=== PATIENT | male | born 1980 | race Caucasian/White ===

== ENCOUNTER 2020-10-31 17:10 | Inpatient (IN) ==
[2020-10-31] MEDS ORDERED: AZITHROMYCIN INJ 500 MG in SODIUM CHLORIDE 0.9% 250 ML IV STA (18:49)
[2020-10-31] MEDS ORDERED: SODIUM CHLORIDE 0.9% 500 ML IV STA (18:49)
[2020-10-31] MEDS ORDERED: DEXAMETHASONE 4 MG/1 ML VIAL IV STA (18:49)
[2020-10-31] MEDS ORDERED: ONDANSETRON 4 MG/2 ML VIAL IV STA (18:49)
[2020-10-31 20:20] LABS: Basophils % 0.4 % (0.0-0.8); Hemoglobin 14.5 GM/DL (14.0-18.0); Immature Granulocytes % 2.3 %; Immature Granulocytes Absolute 0.16 #; Lymphocytes # 0.8 10*3/uL (1.4-4.0); Lymphocytes % 11.8 % (21.2-54.2); Mean Corpuscular HGB Conc 33.7 GM/DL (32-36); Mean Corpuscular Volume 90.7 FL (87-102); Mean Platelet Volume 10.1 FL (9.6-12.0); Monocytes % 6.5 % (1.7-12.7); Platelet Count 238 T/CUMM (130-400); Red Blood Count 4.74 MC/CUMM (3.8-5.5); Red Cell Distribution Width 12.5 % (9.3-17.3); White Blood Count 7.1 T/CUMM (4-12)
[2020-10-31 20:40] LABS: Albumin 2.7 G/DL (3.4-5.0); Bilirubin,Total 0.6 MG/DL (0.20-1.00); Calcium 7.6 MG/DL (8.5-10.1); Osmolality,Calculated 271.8 MOS/KG (273-304); Potassium 4.5 MMOL/L (3.5-5.1); Total Protein 5.8 G/DL (6.4-8.2)
[2020-10-31 20:41] LABS: Ferritin 1688.7 ng/ml (26-388)
[2020-10-31 20:46] LABS: PT Patient Result 11.5 SECS (10.5-12.0)
[2020-10-31 21:08] LABS: Hypochromasia Slight; Microcytosis 1+; Platelet Estimate Normal
[2020-10-31] MEDS ORDERED: ENOXAPARIN 100 MG/ML SYRINGE SUBCUT STA (21:13)
[2020-10-31] MEDS ORDERED: MELATONIN 3 MG TABLET PO PRN (22:39)
[2020-10-31] MEDS ORDERED: ONDANSETRON 4 MG/2 ML VIAL IV PRN (22:48)
[2020-10-31] MEDS ORDERED: GLUCAGON 1 MG VIAL IM PRN (22:48)
[2020-10-31] MEDS ORDERED: DOCUSATE SODIUM 100 MG CAPSULE PO PRN (22:48)
[2020-10-31] MEDS ORDERED: ACETAMINOPHEN 325 MG TABLET PO PRN (22:48)
[2020-10-31] MEDS ORDERED: DEXTROSE 50% 25 GM/50 ML VIAL IV PRN (22:48)
[2020-10-31] MEDS: ASCORBIC ACID 500 MG TABLET PO SCH (22:55)
[2020-10-31] MEDS: FAMOTIDINE 20 MG TABLET PO SCH (22:55)
[2020-11-01] MEDS: cefTRIAXone 1,000 MG in SODIUM CHLORIDE 0.9% 100 ML IV SCH (03:00)
[2020-11-01 04:32] LABS: Basophils % 0.6 % (0.0-0.8); Hemoglobin 13.5 GM/DL (14.0-18.0); Immature Granulocytes Absolute 0.23 #; Lymphocytes # 0.9 10*3/uL (1.4-4.0); Mean Corpuscular HGB Conc 32.9 GM/DL (32-36); Mean Corpuscular Volume 92.3 FL (87-102); Mean Platelet Volume 10.8 FL (9.6-12.0); Monocytes % 6.7 % (1.7-12.7); Neutrophils % 67.7 % (38.7-73.9); Platelet Count 254 T/CUMM (130-400); Red Blood Count 4.44 MC/CUMM (3.8-5.5); Red Cell Distribution Width 12.5 % (9.3-17.3); White Blood Count 4.6 T/CUMM (4-12)
[2020-11-01 04:44] LABS: Albumin 1.9 G/DL (3.4-5.0); Bilirubin,Total 0.4 MG/DL (0.20-1.00); Calcium 6.7 MG/DL (8.5-10.1); Osmolality,Calculated 288.6 MOS/KG (273-304); Potassium 4.1 MMOL/L (3.5-5.1); Total Protein 5.1 G/DL (6.4-8.2)
[2020-11-01 05:06] LABS: Eosinophils 1 % (0-10); Lymphocytes 19 % (20-55); Segmented Neutrophils 74 % (50-85); Total Cells Counted 100
[2020-11-01 05:07] LABS: Platelet Estimate Normal
[2020-11-01 05:26] LABS: Ferritin 1391.7 ng/ml (26-388)
[2020-11-01] MEDS ORDERED: REMDESIVIR 200 MG in SODIUM CHLORIDE 0.9% 210 ML IV ONE (09:00)
[2020-11-01] MEDS ORDERED: ENOXAPARIN 40 MG/0.4 ML SYRINGE ONE ×2 (09:31→19:59)
[2020-11-01] MEDS: ASCORBIC ACID 500 MG TABLET PO SCH ×2 (09:52→20:25)
[2020-11-01] MEDS: FAMOTIDINE 20 MG TABLET PO SCH ×2 (09:52→20:25)
[2020-11-01] MEDS: CHOLECALCIFEROL 1,000 UNIT TABLET PO SCH (09:53)
[2020-11-01] MEDS: ZINC GLUCONATE 50 MG TABLET PO SCH (09:54)
[2020-11-01] MEDS: AZITHROMYCIN 250 MG TABLET PO SCH (09:55)
[2020-11-01] MEDS: CETIRIZINE 10 MG TABLET PO SCH (09:56)
[2020-11-01] MEDS: DEXAMETHASONE 4 MG/1 ML VIAL IV SCH (09:57)
[2020-11-01] MEDS: ENOXAPARIN 40 MG/0.4 ML SYRINGE SUBCUT SCH (20:25)
[2020-11-02] MEDS: cefTRIAXone 1,000 MG in SODIUM CHLORIDE 0.9% 100 ML IV SCH (03:25)
[2020-11-02 05:19] LABS: Basophils # 0.1 10*3/uL (0.0-0.2); Basophils % 0.4 % (0.0-0.8); Hematocrit 47.1 VOL% (42.0-52.0); Hemoglobin 15.1 GM/DL (14.0-18.0); Immature Granulocytes % 4.9 %; Lymphocytes # 2.3 10*3/uL (1.4-4.0); Lymphocytes % 15.9 % (21.2-54.2); Mean Corpuscular HGB Conc 32.1 GM/DL (32-36); Mean Corpuscular Volume 93.1 FL (87-102); Mean Platelet Volume 10.3 FL (9.6-12.0); Monocytes % 10.8 % (1.7-12.7); Platelet Count 371 T/CUMM (130-400); Red Blood Count 5.06 MC/CUMM (3.8-5.5); Red Cell Distribution Width 12.4 % (9.3-17.3); White Blood Count 14.4 T/CUMM (4-12)
[2020-11-02 05:37] LABS: Albumin 2.3 G/DL (3.4-5.0); Bilirubin,Total 0.7 MG/DL (0.20-1.00); Calcium 8.6 MG/DL (8.5-10.1); Osmolality,Calculated 281.5 MOS/KG (273-304); Potassium 4.6 MMOL/L (3.5-5.1); Total Protein 5.9 G/DL (6.4-8.2)
[2020-11-02 05:38] LABS: Ferritin 1144.9 ng/ml (26-388)
[2020-11-02 05:52] LABS: Band Neutrophils 3 % (0-10); Lymphocytes 18 % (20-55); Segmented Neutrophils 64 % (50-85); Total Cells Counted 100
[2020-11-02 05:53] LABS: Microcytosis 1+; Platelet Estimate Normal
[2020-11-02] MEDS: CETIRIZINE 10 MG TABLET PO SCH (09:31)
[2020-11-02] MEDS: FAMOTIDINE 20 MG TABLET PO SCH ×2 (09:32→20:55)
[2020-11-02] MEDS: CHOLECALCIFEROL 1,000 UNIT TABLET PO SCH (09:32)
[2020-11-02] MEDS: AZITHROMYCIN 250 MG TABLET PO SCH (09:32)
[2020-11-02] MEDS: ASCORBIC ACID 500 MG TABLET PO SCH ×2 (09:32→20:55)
[2020-11-02] MEDS: ZINC GLUCONATE 50 MG TABLET PO SCH (09:32)
[2020-11-02] MEDS: REMDESIVIR 100 MG in SODIUM CHLORIDE 0.9% 100 ML IV SCH (09:33)
[2020-11-02] MEDS: DEXAMETHASONE 4 MG/1 ML VIAL IV SCH (09:33)
[2020-11-02] MEDS ORDERED: guaiFENesin/CODEINE 5 ML LIQUID PO PRN (12:54)
[2020-11-02] MEDS: ENOXAPARIN 40 MG/0.4 ML SYRINGE SUBCUT SCH (20:55)
[2020-11-03] MEDS: cefTRIAXone 1,000 MG in SODIUM CHLORIDE 0.9% 100 ML IV SCH (02:12)
[2020-11-03 04:39] LABS: ABG Base Excess 5.2 MMOL/L (-2.5-2.5); ABG Oxygen Saturation 91.9 % (95-100); ABG PCO2 40.7 MM HG (35-48); ABG PH 7.466 (7.35-7.45); ABG PO2 61.2 MM HG (80-95)
[2020-11-03 06:12] LABS: Basophils % 0.3 % (0.0-0.8); Hematocrit 45.1 VOL% (42.0-52.0); Hemoglobin 14.5 GM/DL (14.0-18.0); Immature Granulocytes % 2.2 %; Immature Granulocytes Absolute 0.27 #; Lymphocytes # 1.7 10*3/uL (1.4-4.0); Lymphocytes % 14.3 % (21.2-54.2); Mean Corpuscular HGB Conc 32.2 GM/DL (32-36); Mean Corpuscular Volume 91.7 FL (87-102); Mean Platelet Volume 10.3 FL (9.6-12.0); Monocytes % 11.5 % (1.7-12.7); Neutrophils % 71.7 % (38.7-73.9); Platelet Count 417 T/CUMM (130-400); Red Blood Count 4.92 MC/CUMM (3.8-5.5); Red Cell Distribution Width 12.3 % (9.3-17.3); White Blood Count 12.1 T/CUMM (4-12)
[2020-11-03 06:40] LABS: Ferritin 734.6 ng/ml (26-388)
[2020-11-03 06:41] LABS: Albumin 2.3 G/DL (3.4-5.0); Bilirubin,Total 0.5 MG/DL (0.20-1.00); Calcium 8.2 MG/DL (8.5-10.1); Potassium 4.2 MMOL/L (3.5-5.1); Total Protein 5.9 G/DL (6.4-8.2)
[2020-11-03 07:56] LABS: Microcytosis 1+; Platelet Estimate Increased
[2020-11-03] MEDS: ASCORBIC ACID 500 MG TABLET PO SCH (08:00)
[2020-11-03] MEDS: CETIRIZINE 10 MG TABLET PO SCH (08:01)
[2020-11-03] MEDS: AZITHROMYCIN 250 MG TABLET PO SCH (08:01)
[2020-11-03] MEDS: CHOLECALCIFEROL 1,000 UNIT TABLET PO SCH (08:01)
[2020-11-03] MEDS: FAMOTIDINE 20 MG TABLET PO SCH (08:01)
[2020-11-03] MEDS: ZINC GLUCONATE 50 MG TABLET PO SCH (08:01)
[2020-11-03] MEDS: DEXAMETHASONE 4 MG/1 ML VIAL IV SCH (08:01)
[2020-11-03] MEDS: REMDESIVIR 100 MG in SODIUM CHLORIDE 0.9% 100 ML IV SCH (10:09)
[2020-11-03 12:00] VITALS: BP 109/71
== END 2020-11-03 15:33 | disposition home or self-care (01) | DRG 177 ==
LOC: N.ED 17:10 → N.EDINP 22:32 → N.2E 11-01 19:52
PROVIDERS: ADMIT Internal Medicine; ATTEND Internal Medicine